=== PATIENT | female | born 1970 | race American Indian/Alaskan Native ===

== ENCOUNTER 2016-11-09 13:34 | Emergency (ER) | payer SELFPAY ==
[2016-11-09 14:10] VITALS: BP 163/100
== END 2016-11-09 17:01 | disposition left against medical advice (07) ==
LOC: ED 13:34
DX: K08.89 Other specified disorders of teeth and supporting structures (principal); M25.562 Pain in left knee; I10 Essential (primary) hypertension; Z88.8 Allergy status to other drugs, medicaments and biological substances; Z53.21 Procedure and treatment not carried out due to patient leaving prior to being seen by health care provider

== ENCOUNTER 2017-07-01 09:57 | Emergency (ER) | payer SELFPAY ==
[2017-07-01 10:14] VITALS: BP 189/117
--- NOTE | 2017-07-01 12:36 | Emergency Department Report ---
ED Recheck HPI - General Chief Complaint: Extremity Injury, Lower Stated Complaint: LEFT KNEE PAIN Time Seen by Provider: 07/01/17 11:24 Source: patient Mode of arrival: Ambulatory Limitations: No Limitations - History of Present Illness Initial Comments: This is a 46-year-old female nontoxic, well nourished in appearance, no acute signs of distress presents to the ED with medication refill. Patient stated she has chronic left knee pain and is having surgery for left knee replacement next with her orthopedic doctor. Patient stated that [place] orthopedic doctor [place] a [place] prescribe her Percocets, tramadol which she misplaced his in the bus and is requesting for refill. Patient denies any new trauma to the knee. Denies any chest pain, shortness of breath, fever, chills, nausea, vomiting, or numbness tingling. She states allergies to Vicodin and Nubain. PMH includes HTN and left knee pain. MD Complaint: medication refill request Returns Today for: request for prescription Symptoms Since Prior Visit: no new symptoms Associated Symptoms: none. denies: fever, chills, chest pain, shortness of breath, rash, malaise, nasuea, abdominal pain - Related Data Previous Rx's Medication Instructions Recorded Last Taken Type Lisinopril [Zestril TAB] 10 mg PO QDAY #30 tablet 09/16/14 Unknown Rx amLODIPine [Norvasc] 10 mg PO DAILY #30 tab 09/16/14 Unknown Rx oxyCODONE /ACETAMINOPHEN [Percocet 1 tab PO Q6HR PRN #10 tablet 09/16/14 Unknown Rx 5/325] traMADol [Ultram 50 MG tab] 50 mg PO Q6HR PRN #3 tablet 07/01/17 Unknown Rx Allergies Allergy/AdvReac Type Severity Reaction Status Date / Time acetaminophen [From Vicodin] Allergy Unknown Verified 09/16/14 16:52 hydrocodone bitartrate Allergy Unknown Verified 09/16/14 16:52 [From Vicodin] nalbuphine HCl [From Nubain] Allergy Unknown Verified 09/16/14 16:52 ED Review of Systems ROS: Stated complaint: LEFT KNEE PAIN Other details as noted in HPI Constitutional: denies: chills, fever Eyes: denies: eye pain, eye discharge, vision change ENT: denies: ear pain, throat pain Respiratory: denies: cough, shortness of breath, wheezing Cardiovascular: denies: chest pain, palpitations Endocrine: no symptoms reported Gastrointestinal: denies: abdominal pain, nausea, diarrhea Genitourinary: denies: urgency, dysuria, discharge Musculoskeletal: denies: back pain, joint swelling, arthralgia Skin: denies: rash, lesions Neurological: denies: headache, weakness, paresthesias Psychiatric: denies: anxiety, depression Hematological/Lymphatic: denies: easy bleeding, easy bruising ED Past Medical Hx - Past Medical History Previous Medical History?: Yes Hx Hypertension: Yes - Surgical History Past Surgical History?: Yes Additional Surgical History: knee surg - Social History Smoking Status: Current Every Day Smoker Substance Use Type: Alcohol - Medications Home Medications: Home Medications Medication Instructions Recorded Confirmed Last Taken Type Lisinopril [Zestril TAB] 10 mg PO QDAY #30 tablet 09/16/14 Unknown Rx amLODIPine [Norvasc] 10 mg PO DAILY #30 tab 09/16/14 Unknown Rx oxyCODONE /ACETAMINOPHEN [Percocet 1 tab PO Q6HR PRN #10 tablet 09/16/14 Unknown Rx 5/325] traMADol [Ultram 50 MG tab] 50 mg PO Q6HR PRN #3 tablet 07/01/17 Unknown Rx ED Physical Exam - General Limitations: No Limitations General appearance: alert, in no apparent distress - Head Head exam: Present: atraumatic, normocephalic, normal inspection - Eye Eye exam: Present: normal appearance, PERRL, EOMI. Absent: scleral icterus, conjunctival injection, nystagmus, periorbital swelling, periorbital tenderness Pupils: Present: normal accommodation - ENT ENT exam: Present: normal exam, normal orophraynx, mucous membranes moist, TM's normal bilaterally, normal external ear exam - Neck Neck exam: Present: normal inspection, full ROM. Absent: tenderness, meningismus, lymphadenopathy, thyromegaly - Respiratory Respiratory exam: Present: normal lung sounds bilaterally. Absent: respiratory distress, wheezes, rales, rhonchi, stridor, chest wall tenderness, accessory muscle use, decreased breath sounds, prolonged expiratory - Cardiovascular Cardiovascular Exam: Present: regular rate, normal rhythm, normal heart sounds. Absent: irregular rhythm, systolic murmur, diastolic murmur, rubs, gallop - GI/Abdominal GI/Abdominal exam: Present: soft, normal bowel sounds. Absent: distended, tenderness, guarding, rebound, rigid, diminished bowel sounds - Rectal Rectal exam: Present: deferred - Extremities Exam Extremities exam: Present: normal inspection, full ROM, normal capillary refill. Absent: tenderness, pedal edema, joint swelling, calf tenderness - Expanded Lower Extremity Exam Left Hip exam: Present: normal inspection, full ROM Upper Leg exam: Present: normal inspection, full ROM Knee exam: Present: normal inspection, full ROM, full knee extension. Absent: tenderness, swelling, abrasion, laceration, ecchymosis, deformity, crepidus, dislocation, erythema, effusion, pain w/ pronation/supination, posterior draw sign, pain/laxity with valgus, pain/laxity with varus Lower Leg exam: Present: normal inspection, full ROM Ankle exam: Present: normal inspection, full ROM Foot/Toe exam: Present: normal inspection, full ROM Neuro vascular tendon exam: Present: no vascular compromise. Absent: pulse deficit, abnormal cap refill, motor deficit, sensory deficit, tendon deficit, extremity cold to touch, pallor, abnormal 2-point discrimination, decreased fine /light touch, foot drop, peroneal nerve deficit, significant pain with passive ROM of distal joint Gait: Positive: observed and normal - Back Exam Back exam: Present: normal inspection, full ROM. Absent: tenderness, CVA tenderness (R), CVA tenderness (L), muscle spasm, paraspinal tenderness, vertebral tenderness, rash noted - Neurological Exam Neurological exam: Present: alert, oriented X3 - Psychiatric Psychiatric exam: Present: normal affect, normal mood - Skin Skin exam: Present: warm, dry, intact, normal color. Absent: rash ED Course Vital Signs 07/01/17 10:11 Temperature 98.1 F Pulse Rate 96 H Respiratory 18 Rate Blood Pressure 189/117 O2 Sat by Pulse 96 Oximetry - Reevaluation(s) Reevaluation #1: 07/01/17 12:34 Patient is speaking in full sentences with no signs of distress noted. ED Recheck MDM - Medical Decision Making 46-year-old female that persents with chronic knee pain. Patient receveid tramadol x3 pills and was instructed to contact her PCP to get a refill. Patient was instructed not to operate any machinery during taking Tramadol due to drowsiness. At time time of discharge, the patient does not seem toxic or ill in appearance. No acute signs of distress noted. Patient agrees to discharge treatment plan of care. No further questions noted by the patient. Critical care attestation.: If time is entered above; I have spent that time in minutes in the direct care of this critically ill patient, excluding procedure time. ED Disposition Clinical Impression: Chronic knee pain Qualifiers: Laterality: left Qualified Code(s): M25.562 - Pain in left knee; G89.29 - Other chronic pain; G89.29 - Other chronic pain Disposition: TO HOME OR SELFCARE Is pt being admited?: No Does the pt Need Aspirin: No Condition: Stable Instructions: Tramadol (By mouth) Additional Instructions: Follow-up with a primary care doctor in 3-5 days or if symptoms worsen and continue return to emergency room as soon as possible. Prescriptions: traMADol [Ultram 50 MG tab] 50 mg PO Q6HR PRN #3 tablet PRN Reason: Pain Referrals: PRIMARY CARE, [Primary Care Provider] - 3-5 Days AMAYA SCHROEDER MD [Staff Physician] - 3-5 Days NATALIE VALVERDE MD [Staff Physician] - 3-5 Days [facility] [Outside] - 3-5 Days [facility] [Outside] - 3-5 Days
[2017-07-01] MEDS ORDERED: TORADOL IM ONE (12:43)
== END 2017-07-01 13:50 | disposition home or self-care (01) ==
LOC: ED 09:57
DX: G89.29 Other chronic pain (principal); M25.562 Pain in left knee; I10 Essential (primary) hypertension; F17.200 Nicotine dependence, unspecified, uncomplicated; Z88.6 Allergy status to analgesic agent; Z88.8 Allergy status to other drugs, medicaments and biological substances
CPT/HCPCS: 96372; 99282; J1885

== ENCOUNTER 2017-07-14 20:29 | Emergency (ER) | payer SELFPAY ==
[2017-07-14] MEDS ORDERED: CATAPRES ONE (23:14)
[2017-07-14] MEDS ORDERED: CATAPRES PO ONE (23:18)
--- NOTE | 2017-07-15 04:56 | Emergency Department Report ---
ED ENT HPI - General Chief complaint: Dental/Oral Stated complaint: TOOTH PAIN Time Seen by Provider: 07/15/17 04:41 Source: patient Mode of arrival: Ambulatory Limitations: No Limitations - History of Present Illness Initial comments: This is a 46 y.o. female presenting with tooth pain x 1 week. Patient states she is visiting here from [place] to help daughter. States pain is 10/10, constant, and sharp. She has tried ibuprofen with minimal relief. She is aware one of the tooth cracked while eating something a few weeks ago. She is just trying to deal with the pain but now it is unbearable. MD complaint: tooth pain -: week(s) (1 week) Location: tooth # (#31 and #18) 1 - cracked tooth 2 - caries, Severity: severe Severity scale (0 -10): 10 Quality: aching, sharp, constant Consistency: constant Improves with: none Worsens with: eating Context- Dental: history of dental caries, poor dental care Associated Symptoms: toothache. denies: fever, cough, gum swelling, pain with swallowing, sore throat, tinnitus, hearing loss, discharge from ear, rhinorrhea - Related Data Previous Rx's Medication Instructions Recorded Last Taken Type Lisinopril [Zestril TAB] 10 mg PO QDAY #30 tablet 09/16/14 Unknown Rx amLODIPine [Norvasc] 10 mg PO DAILY #30 tab 09/16/14 Unknown Rx oxyCODONE /ACETAMINOPHEN [Percocet 1 tab PO Q6HR PRN #10 tablet 09/16/14 Unknown Rx 5/325] traMADol [Ultram 50 MG tab] 50 mg PO Q6HR PRN #3 tablet 07/01/17 Unknown Rx Amoxicillin/Potassium Clav 1 each PO BID 10 Days #20 tablet 07/15/17 Unknown Rx [Augmentin 500-125 Tablet] traMADol [Ultram 50 MG tab] 50 mg PO Q6HR PRN 7 Days #28 tablet 07/15/17 Unknown Rx Allergies Allergy/AdvReac Type Severity Reaction Status Date / Time acetaminophen [From Vicodin] Allergy Unknown Verified 09/16/14 16:52 hydrocodone bitartrate Allergy Unknown Verified 09/16/14 16:52 [From Vicodin] nalbuphine HCl [From Nubain] Allergy Unknown Verified 09/16/14 16:52 ED Dental HPI - General Chief complaint: Dental/Oral Stated complaint: TOOTH PAIN Time Seen by Provider: 07/15/17 04:41 Source: patient Mode of arrival: Ambulatory Limitations: No Limitations - Related Data Previous Rx's Medication Instructions Recorded Last Taken Type Lisinopril [Zestril TAB] 10 mg PO QDAY #30 tablet 09/16/14 Unknown Rx amLODIPine [Norvasc] 10 mg PO DAILY #30 tab 09/16/14 Unknown Rx oxyCODONE /ACETAMINOPHEN [Percocet 1 tab PO Q6HR PRN #10 tablet 09/16/14 Unknown Rx 5/325] traMADol [Ultram 50 MG tab] 50 mg PO Q6HR PRN #3 tablet 07/01/17 Unknown Rx Amoxicillin/Potassium Clav 1 each PO BID 10 Days #20 tablet 07/15/17 Unknown Rx [Augmentin 500-125 Tablet] traMADol [Ultram 50 MG tab] 50 mg PO Q6HR PRN 7 Days #28 tablet 07/15/17 Unknown Rx Allergies Allergy/AdvReac Type Severity Reaction Status Date / Time acetaminophen [From Vicodin] Allergy Unknown Verified 09/16/14 16:52 hydrocodone bitartrate Allergy Unknown Verified 09/16/14 16:52 [From Vicodin] nalbuphine HCl [From Nubain] Allergy Unknown Verified 09/16/14 16:52 ED Review of Systems ROS: Stated complaint: TOOTH PAIN Other details as noted in HPI Constitutional: no symptoms reported, see HPI. denies: chills, diaphoresis, fever, malaise, weakness ENT: as per HPI, throat pain, dental pain. denies: ear pain, hearing loss, epistaxis, congestion Respiratory: no symptoms reported, see HPI. denies: cough, orthopnea, shortness of breath, SOB with exertion, SOB at rest, stridor, wheezing Cardiovascular: as per HPI. denies: chest pain, palpitations, dyspnea on exertion, orthopnea, edema, syncope, paroxysmal nocturnal dyspnea Skin: as per HPI. denies: rash, lesions, change in color, change in hair/nails , pruritus Neurological: as per HPI. denies: headache, weakness, numbness, paresthesias, confusion, abnormal gait, vertigo Psychiatric: as per HPI. denies: anxiety, depression, auditory hallucinations, visual hallucinations, homicidal thoughts, suicidal thoughts ED Past Medical Hx - Past Medical History Hx Hypertension: Yes - Surgical History Additional Surgical History: knee surg - Social History Smoking Status: Never Smoker Substance Use Type: None - Medications Home Medications: Home Medications Medication Instructions Recorded Confirmed Last Taken Type Lisinopril [Zestril TAB] 10 mg PO QDAY #30 tablet 09/16/14 Unknown Rx amLODIPine [Norvasc] 10 mg PO DAILY #30 tab 09/16/14 Unknown Rx oxyCODONE /ACETAMINOPHEN [Percocet 1 tab PO Q6HR PRN #10 tablet 09/16/14 Unknown Rx 5/325] traMADol [Ultram 50 MG tab] 50 mg PO Q6HR PRN #3 tablet 07/01/17 Unknown Rx Amoxicillin/Potassium Clav 1 each PO BID 10 Days #20 tablet 07/15/17 Unknown Rx [Augmentin 500-125 Tablet] traMADol [Ultram 50 MG tab] 50 mg PO Q6HR PRN 7 Days #28 tablet 07/15/17 Unknown Rx ED Physical Exam - General Limitations: No Limitations General appearance: alert, in no apparent distress - Head Head exam: Present: normal inspection - ENT ENT exam: Present: normal orophraynx, TM's normal bilaterally, normal external ear exam, other (broken tooth #18, caries #32, mild swelling) - Neck Neck exam: Present: normal inspection, full ROM. Absent: tenderness, meningismus, lymphadenopathy, thyromegaly - Respiratory Respiratory exam: Present: normal lung sounds bilaterally. Absent: respiratory distress, wheezes, rales, rhonchi, stridor, chest wall tenderness, accessory muscle use, decreased breath sounds, prolonged expiratory - Cardiovascular Cardiovascular Exam: Present: regular rate, normal rhythm, normal heart sounds. Absent: bradycardia, tachycardia, irregular rhythm, systolic murmur, diastolic murmur, rubs, gallop, clicks, JVD, S3, S4 - GI/Abdominal GI/Abdominal exam: Present: soft, normal bowel sounds. Absent: distended, tenderness, guarding, rebound, rigid, diminished bowel sounds, hyperactive bowel sounds, hypoactive bowel sounds, organomegaly, mass, bruit, pulsatile mass , hernia - Psychiatric Psychiatric exam: Present: normal affect, normal mood. Absent: depressed, agitated, anxious, flat affect, manic, homicidal ideation, suicidal ideation ED Course Vital Signs 07/14/17 07/14/17 07/14/17 21:41 23:03 23:18 Temperature 98.6 F Pulse Rate 72 72 Respiratory 18 Rate Blood Pressure 166/114 166/114 Blood Pressure 244/160 [Right] O2 Sat by Pulse 100 Oximetry 07/15/17 07/15/17 01:50 05:50 Temperature 97.9 F 97.5 F L Pulse Rate 65 68 Respiratory 18 18 Rate Blood Pressure 179/142 Blood Pressure 133/94 [Right] O2 Sat by Pulse 99 100 Oximetry Critical care attestation.: If time is entered above; I have spent that time in minutes in the direct care of this critically ill patient, excluding procedure time. ED Disposition Clinical Impression: Tooth decay Tooth fracture Qualifiers: Encounter type: initial encounter Fracture type: open Qualified Code(s): S02.5XXB - Fracture of tooth (traumatic), initial encounter for open fracture Disposition: DC-01 TO HOME OR SELFCARE Is pt being admited?: No Does the pt Need Aspirin: No Condition: Stable Instructions: Toothache (ED) Additional Instructions: Follow-up with dentist. Prescriptions: Amoxicillin/Potassium Clav [Augmentin 500-125 Tablet] 1 each PO BID 10 Days #20 tablet traMADol [Ultram 50 MG tab] 50 mg PO Q6HR PRN 7 Days #28 tablet PRN Reason: Pain Referrals: PRIMARY CAREMD [Primary Care Provider] - 3-5 Days [facility] [Outside] - 3-5 Days baldo Starks [Other] - 3-5 Days Time of Disposition: 06:02 Print Language: SWEDISH
[2017-07-15 05:51] VITALS: BP 133/94
[2017-07-15] MEDS ORDERED: ULTRAM PO ONE ×2 (06:21→06:23)
[2017-07-15] MEDS ORDERED: ULTRAM ONE (06:22)
== END 2017-07-15 06:26 | disposition home or self-care (01) ==
LOC: ED 20:29
DX: S02.5XXB Fracture of tooth (traumatic), initial encounter for open fracture (principal); K02.9 Dental caries, unspecified; I10 Essential (primary) hypertension; Z88.6 Allergy status to analgesic agent; Z88.8 Allergy status to other drugs, medicaments and biological substances
CPT/HCPCS: 99282

== ENCOUNTER 2017-12-17 21:49 | Emergency (ER) | payer SELFPAY ==
[2017-12-18] MEDS ORDERED: BOOSTRIX IM ONE (02:31)
[2017-12-18] MEDS ORDERED: CLEOCIN PO ONE (02:31)
[2017-12-18] MEDS ORDERED: MOTRIN PO ONE (02:31)
--- NOTE | 2017-12-18 02:31 | Emergency Department Report ---
HPI - General Chief Complaint: Dental/Oral Time Seen by Provider: 12/18/17 01:34 - HPI HPI: Patient reported that she has cracked tooth to her left lower tooth and she is put something [id number] and it to stop it from hurting. She says she's been taking Motrin is not helping. She said this started yesterday and she does not have a dentist. Patient blood pressure is elevated and she has a history of high blood pressure and says she's taken medication. She said her blood pressure usually goes up when she is in pain. Denies any fever or chills. Denies any nausea or vomiting. Denies any headache, back pain or chest pain. Denies any shortness of breath. Denies any dizziness or blurred vision she said pain is localized to her tooth which is 10 out of 10 and also reports that she has a cat scratch that happened yesterday to her finger right middle. Denies any bleeding. Denies any open wound. Denies any redness or drainage from site. Patient's request a tetanus shot. She said it was a stray cat. She did not call animal control and said that the cat did not look dirty or sick. She says she came across the cat and was playing with a cath in cat scratched her. Pain to tooth pain to tooth is achy and worse with chewing. She says she has pain on and off to her right middle finger at cat scratch 4 out of 10 that sore worse with movement. Denies any sore throat or drooling. ED Past Medical Hx - Past Medical History Previous Medical History?: Yes Hx Hypertension: Yes - Surgical History Past Surgical History?: Yes Additional Surgical History: knee surg - Family History Family history: hypertension - Social History Smoking Status: Former Smoker Substance Use Type: None Other Social History: Patient is a and lives with family - Medications Home Medications: Home Medications Medication Instructions Recorded Confirmed Last Taken Type Lisinopril [Zestril TAB] 10 mg PO QDAY #30 tablet 09/16/14 Unknown Rx amLODIPine [Norvasc] 10 mg PO DAILY #30 tab 09/16/14 Unknown Rx oxyCODONE /ACETAMINOPHEN [Percocet 1 tab PO Q6HR PRN #10 tablet 09/16/14 Unknown Rx 5/325] traMADol [Ultram 50 MG tab] 50 mg PO Q6HR PRN #3 tablet 07/01/17 Unknown Rx traMADol [Ultram 50 MG tab] 50 mg PO Q6HR PRN 7 Days #28 tablet 07/15/17 Unknown Rx Acetaminophen/Codeine [Tylenol 1 tab PO Q6H PRN #12 tab 12/18/17 Unknown Rx /Codeine # 3 tab] Amoxicillin/Potassium Clav 1 each PO BID 10 Days #20 tablet 12/18/17 Unknown Rx [Augmentin 500-125 Tablet] Fluconazole [Diflucan] 150 mg PO QDAY PRN 2 Days #2 tablet 12/18/17 Unknown Rx Ibuprofen [Motrin] 600 mg PO Q8H PRN #15 tablet 12/18/17 Unknown Rx ED Review of Systems ROS: Stated complaint: TOOTHACHE Other details as noted in HPI Constitutional: denies: chills, fever, malaise, weakness Eyes: denies: eye pain, eye discharge, vision change ENT: dental pain, other (report left lower tooth broken). denies: ear pain, throat pain, hearing loss, epistaxis, congestion Respiratory: denies: cough, shortness of breath, SOB with exertion, SOB at rest , wheezing Cardiovascular: denies: chest pain, palpitations, dyspnea on exertion, edema, syncope, paroxysmal nocturnal dyspnea Gastrointestinal: denies: abdominal pain, nausea, vomiting, diarrhea, constipation, hematemesis, melena, hematochezia Genitourinary: denies: urgency, dysuria, discharge Musculoskeletal: arthralgia (right middle finger). denies: back pain, joint swelling Skin: rash (cat scratch). denies: lesions, pruritus Neurological: denies: headache, weakness, numbness, paresthesias, abnormal gait , vertigo Physical Exam - Physical Exam Vital Signs: Vital Signs 12/17/17 22:29 Temperature 98.1 F Pulse Rate 72 Respiratory 18 Rate Blood Pressure 157/108 O2 Sat by Pulse 100 Oximetry Vital Signs 12/17/17 22:29 Temperature 98.1 F Pulse Rate 72 Respiratory 18 Rate Blood Pressure 157/108 O2 Sat by Pulse 100 Oximetry Vital Signs 12/17/17 12/18/17 22:29 03:35 Temperature 98.1 F Pulse Rate 72 Respiratory 18 Rate Blood Pressure 157/108 Blood Pressure 142/88 [Left] O2 Sat by Pulse 100 Oximetry General: This is a 47-year-old female well-nourished well-developed in no acute distress. Physical Exam: Head: Normocephalic, atraumatic, no abrasion, no bruising and no contusion. Eyes: Biateral pupils equal and reactive to light, bilateral EOM intact.. Bilateral conjunctival and sclera without injection, normal accommodation. Mouth: Mucosa moist, no pharyngeal exudate or erythema. No peritonsillar abscesses. Uvula is midline and oral airways patent.. Patient will mild gingivitis and dental caries. No abscess noted. No cellulitic area noted partially fractured tooth at the second molar left lower. Tender to palpate without any pulsatile exposure. Ears: Bilateral TMs pearly trimble Bilateral EAC without any redness swelling or drainage. No mastoid bone tenderness. Neck: Supple, No Cervical adenopathy, full range of motion and no C-spine tenderness. No swelling or tracheal deviation normal reflexes Cardiovascular: S1, S2. Regular rate and rhythm. No murmur. Capillary refill is less then 3 seconds. Lungs: Clear to auscultate bilaterally. No rhonchi, wheezes or rales. No chest wall tenderness. No chest contusion. No bruising to chest. Extremities: No clubbing, cyanosis or edema. +2 pulses. No neurovascular compromise Skin: Clean, dry and intact. No rash or lesions. No huerta noted to finger, fourth. No signs of infection. Mucous membrane is not broken. Psych: Normal mood and behavior ED Course Vital Signs 12/17/17 22:29 Temperature 98.1 F Pulse Rate 72 Respiratory 18 Rate Blood Pressure 157/108 O2 Sat by Pulse 100 Oximetry Vital Signs 12/17/17 12/18/17 22:29 03:35 Temperature 98.1 F Pulse Rate 72 Respiratory 18 Rate Blood Pressure 157/108 Blood Pressure 142/88 [Left] O2 Sat by Pulse 100 Oximetry - Reevaluation(s) Reevaluation #1: 12/18/17 02:53 Patient received Motrin 800 mg by mouth in emergency room for toothache, Boostrix 0.5 mL IM to update tetanus per patient request due to superficial cat scratch. Clindamycin 600 mg by mouth for mild gingivitis, dental decay and fracture tooth. Patient was sleepy but that she is in a lot of pain and Motrin did not completely relieve her pain. Urine drug screen done and was negative for any substance therefore patient will be given stronger pain medication. ED Medical Decision Making - Lab Data Lab Results 12/18/17 Range/Units 02:59 Urine Opiates Screen Presumptive negative Urine Methadone Screen Presumptive negative Ur Barbiturates Screen Presumptive negative Ur Phencyclidine Scrn Presumptive negative Ur Amphetamines Screen Presumptive negative U Benzodiazepines Scrn Presumptive negative Urine Cocaine Screen Presumptive negative U Marijuana (THC) Screen Presumptive negative Drugs of Abuse Note Disclamer - Medical Decision Making ED course: Patient reported that she has toothache that's been going on for the last couple days and she doesn't have a dentist. She said she has broken tooth to the left lower back tooth. Patient found to have mild gingivitis, dental caries and partially fractured second molar to left lower. She has no sign of abscess. Patient is also requests then yeast medication for antibiotic because she said when she takes antibiotic she gets these infection. She also reports that she got scratched by straight cath yesterday to her right fourth middle finger but there is no signs of infection and no signs of subcutaneous involvement. Patient requested tetanus shot so she was given Boostrix 0.5 mL in emergency room, clindamycin 600 milligrams by mouth for gingivitis and we'll cover cat scratch and Motrin 800 mg by mouth for toothache. Urine drug screen done due to patient being sleepy and no substance following urine therefore she is given Percocet 5/325 2 tablets by mouth. I discussed the patient and her blood pressure is elevated and she needs to keep a lot of her blood pressure and take to primary care visit with her for recheck. Patient says she is from [facility] . Patient records show that she has been here starting from 2014 up to 07/24/2017 and was treated for high blood pressure pain. Patient discharged from emergency room in stable condition with prescription for Diflucan, Tylenol 3, Motrin and Augmentin. I gave her [facility] dental clinic to follow-up with along with some [facility]. Critical care attestation.: If time is entered above; I have spent that time in minutes in the direct care of this critically ill patient, excluding procedure time. ED Disposition Clinical Impression: Elevated blood pressure reading with diagnosis of hypertension, Tooth ache, Dental caries, Gingivitis, Scratched by cat, initial encounter Fractured tooth Qualifiers: Encounter type: initial encounter Fracture type: closed Qualified Code(s): S02.5XXA - Fracture of tooth (traumatic), initial encounter for closed fracture Disposition: DC-01 TO HOME OR SELFCARE Is pt being admited?: No Does the pt Need Aspirin: No Condition: Stable Instructions: Animal Bite (ED), Dental Caries (ED), Gingivitis (ED), Hypertension (ED), Toothache (ED) Additional Instructions: See referral to [facility] dental clinic and call in the morning to schedule an appointment Please follow up at [facility] for management of chronic hypertension. Keep a log a few blood pressure intake to primary care visit with you Take Tylenol#3 and/or Motrin for pain but please do not drive or operate heavy machinery while taking Tylenol No. 3 as this medication causes drowsiness Diflucan on Joseluis infection Augmentin to cover gingivitis and reports of cat scratch. There is no infection on your finger and there is no mucosal tissue involvement but he will still need to be an antibiotic for CAT scratch. Please keep affected area clean and dry. Prescriptions: Acetaminophen/Codeine [Tylenol /Codeine # 3 tab] 1 tab PO Q6H PRN #12 tab PRN Reason: moderate to severe pain Amoxicillin/Potassium Clav [Augmentin 500-125 Tablet] 1 each PO BID 10 Days #20 tablet Fluconazole [Diflucan] 150 mg PO QDAY PRN 2 Days #2 tablet PRN Reason: as needed yeast infection Ibuprofen [Motrin] 600 mg PO Q8H PRN #15 tablet PRN Reason: mild to moderate pain Referrals: [facility] [Outside] - 12/20/17 [facility] [Outside] - 12/20/17 PRIMARY CAREMD [Primary Care Provider] - 12/20/17 Forms: Work/School Release Form(ED)
[2017-12-18 03:21] LABS: Amphetamine Screen,Urine PRESUMPTIVE NEGATIVE; Benzodiazepines Screen,Urine PRESUMPTIVE NEGATIVE; Cannabinoid Screen,Urine PRESUMPTIVE NEGATIVE; Cocaine Screen,Urine PRESUMPTIVE NEGATIVE; Methadone Screen,Urine PRESUMPTIVE NEGATIVE; Opiate Screen,Urine PRESUMPTIVE NEGATIVE
[2017-12-18] MEDS ORDERED: PERCOCET 5/325 PO ONE (03:43)
[2017-12-18 07:55] VITALS: BP 142/88
== END 2017-12-18 04:20 | disposition home or self-care (01) ==
LOC: ED 21:49
DX: S02.5XXA Fracture of tooth (traumatic), initial encounter for closed fracture (principal); K02.9 Dental caries, unspecified; K05.10 Chronic gingivitis, plaque induced; I10 Essential (primary) hypertension; Z87.891 Personal history of nicotine dependence; Z88.6 Allergy status to analgesic agent; Z88.9 Allergy status to unspecified drugs, medicaments and biological substances; Z79.899 Other long term (current) drug therapy; W55.03XA Scratched by cat, initial encounter; Y93.89 Activity, other specified; Y92.89 Other specified places as the place of occurrence of the external cause; Y99.8 Other external cause status
CPT/HCPCS: 80307; 90471; 90715; 99282